=== PATIENT | female | born 1990 | race African-American/Black ===

== ENCOUNTER 2023-01-04 15:27 | Inpatient (IN) | payer OTHER ==
[2023-01-04 16:35] LABS: INR 0.97 (0.83-1.09); PROTHROMBIN TIME (PATIENT) 11.2 SEC (9.7-13.0)
[2023-01-04 16:38] LABS: ACTIVATED PTT 27.7 SECONDS (25.2-36.5)
[2023-01-04 16:40] LABS: BASO % 0.4 % (0-2.0); EOS % 0.7 % (0-4.5); HEMATOCRIT 32.1 % (32.4-45.2); HEMOGLOBIN 9.7 GM/dL (10.7-15.3); MCH 20.4 pg (25.7-33.7); MCHC 30.2 g/dl (32.0-36.0); MEAN CELL VOLUME 67.4 fl (80-96); MONO % 8.7 % (3.8-10.2); NEUT % 71.2 % (42.8-82.8); RBC 4.76 M/mm3 (3.60-5.2); RDW 17.6 % (11.6-15.6); WHITE BLOOD COUNT 6.6 K/mm3 (4.0-10.0)
[2023-01-04 17:01] LABS: POTASSIUM 3.9 mmol/L (3.5-5.1)
[2023-01-04 17:03] LABS: CALCIUM 8.8 mg/dL (8.5-10.1)
[2023-01-04 17:04] LABS: ALBUMIN 2.7 g/dl (3.4-5.0); BLOOD UREA NITROGEN 10.2 mg/dL (7-18)
[2023-01-04 17:07] LABS: CREATININE 0.7 mg/dL (0.55-1.3)
[2023-01-04 17:09] LABS: BILIRUBIN,TOTAL 0.3 mg/dL (0.2-1)
[2023-01-04 17:14] LABS: ANISOCYTOSIS 3+; MACROCYTOSIS 0; OVALOCYTE 1+; PLATELET COUNT 172 10^3/uL (134-434); TEAR DROP CELLS 1+
[2023-01-04 17:53] LABS: HIV INTERPRETATION NEGATIVE (NEGATIVE)
[2023-01-05] MEDS ORDERED: ELECTROLYTE-148 SOLN 500 ML IV ONE ×2 (05:00→09:49)
[2023-01-05] MEDS ORDERED: CITRIC ACID/SODIUM CITRATE 30 ML UNIT-DOSE CUP PO ONE ×2 (05:00→09:49)
[2023-01-05] MEDS ORDERED: ELECTROLYTE-148 SOLN 1,000 ML IV SCH (05:30)
[2023-01-05 06:01] VITALS: BMI 41.8
[2023-01-05] MEDS: ELECTROLYTE-148 SOLN 1,000 ML IV SCH (07:00)
[2023-01-05] MEDS ORDERED: OXYTOCIN 20 UNITS in 0.9% NS 40 UNIT/2,000 ML INFUS.BAG IV ONE (07:47)
[2023-01-05] MEDS ORDERED: DEXAMETHASONE SOD PHOSPHATE 4 MG/1 ML VIAL ONE (07:49)
[2023-01-05] MEDS ORDERED: ONDANSETRON 4 MG/2 ML VIAL ONE (07:49)
[2023-01-05] MEDS ORDERED: morphine SULFATE/PF 1 MG/2 ML (2cc Syringe - QUVA) ONE (07:49)
[2023-01-05] MEDS ORDERED: PHENYLEPHRINE HCL 10 MG/1 ML SINGLE DOSE VIAL ONE (07:49)
[2023-01-05] MEDS ORDERED: ceFAZolin SODIUM 1 GM VIAL ONE (07:49)
[2023-01-05] MEDS ORDERED: OXYTOCIN 10 UNITS/ML VIAL ONE (08:39)
[2023-01-05] MEDS: OXYTOCIN 20 UNITS in 0.9% NS 20 UNIT/1,000 ML INFUS.BAG IV SCH ×2 (08:46→17:49)
[2023-01-05] MEDS ORDERED: KETOROLAC TROMETHAMINE 30 MG/1 ML VIAL ONE (09:30)
[2023-01-05] MEDS ORDERED: ONDANSETRON 4 MG/2 ML VIAL IVPUSH PRN (09:56)
[2023-01-05] MEDS ORDERED: IBUPROFEN 800 MG/8 ML IJ IVPB PRN ×2 (09:57→09:58)
[2023-01-05] MEDS ORDERED: METHYLERGONOVINE MALEATE 0.2 MG/1 ML AMP IM PRN (09:58)
[2023-01-05] MEDS ORDERED: LABETALOL HCL 200 MG TABLET (FP) ONE (10:50)
[2023-01-05] MEDS: LABETALOL HCL 200 MG TABLET (FP) PO SCH ×2 (10:53→22:25)
[2023-01-05] MEDS: FERROUS SO4 325 MG TABLET (FP) PO SCH ×2 (12:18→22:25)
[2023-01-05] MEDS: PRENATAL VITAMINS W/ FOLIC ACID TABLET (FP) PO SCH (12:18)
[2023-01-05] MEDS ORDERED: MISOPROSTOL 200 MCG TABLET ONE ×2 (14:15→14:18)
[2023-01-05] MEDS ORDERED: MISOPROSTOL 200 MCG TABLET PR ONE (14:30)
[2023-01-05] MEDS: ACETAMINOPHEN 1000 MG/100 ML BAG IVPB PRN (16:18)
[2023-01-05 17:27] LABS: BASO % 0.1 % (0-2.0); LYMPH % 6.3 % (8-40); MCH 20.1 pg (25.7-33.7); MCHC 29.9 g/dl (32.0-36.0); MEAN CELL VOLUME 67.2 fl (80-96); MEAN PLT VOLUME 8.9 fl (7.5-11.1); MONO % 3.9 % (3.8-10.2); NEUT % 89.7 % (42.8-82.8); PLATELET COUNT 168 10^3/uL (134-434); RBC 4.47 M/mm3 (3.60-5.2); RDW 17.2 % (11.6-15.6); WHITE BLOOD COUNT 11.7 K/mm3 (4.0-10.0)
[2023-01-05] MEDS ORDERED: CEFAZOLIN SODIUM 2 GM in DEXTROSE 5%-WATER 100 ML IVPB ONE (18:15)
[2023-01-05] MEDS ORDERED: oxyCODONE HCL 5 MG TABLET PO PRN (21:58)
[2023-01-06] MEDS: ACETAMINOPHEN 1000 MG/100 ML BAG IVPB PRN (01:18)
[2023-01-06] MEDS: oxyCODONE HCL 5 MG TABLET PO PRN ×2 (08:27→20:43)
[2023-01-06] MEDS: SIMETHICONE 80 MG TAB.CHEW (FP) PO PRN ×2 (08:28→17:12)
[2023-01-06] MEDS: FERROUS SO4 325 MG TABLET (FP) PO SCH ×2 (09:28→21:59)
[2023-01-06] MEDS: PRENATAL VITAMINS W/ FOLIC ACID TABLET (FP) PO SCH (09:28)
[2023-01-06] MEDS: IBUPROFEN 600 MG TABLET (FP) PO PRN ×2 (09:29→17:12)
[2023-01-06] MEDS: LABETALOL HCL 200 MG TABLET (FP) PO SCH ×2 (09:29→21:59)
[2023-01-06 09:32] LABS: BASO % 0.2 % (0-2.0); HEMATOCRIT 21.8 % (32.4-45.2); LYMPH % 14.2 % (8-40); MCH 20.5 pg (25.7-33.7); MCHC 30.6 g/dl (32.0-36.0); MONO % 7.7 % (3.8-10.2); NEUT % 77.9 % (42.8-82.8); PLATELET COUNT 135 10^3/uL (134-434); RBC 3.26 M/mm3 (3.60-5.2); RDW 16.9 % (11.6-15.6); WHITE BLOOD COUNT 13.4 K/mm3 (4.0-10.0)
[2023-01-06 09:36] LABS: HEMOGLOBIN 6.7 GM/dL (10.7-15.3)
[2023-01-06] MEDS ORDERED: BISACODYL 10 MG SUPP.RECT RC PRN (09:58)
[2023-01-06] MEDS: OXYTOCIN 20 UNITS in 0.9% NS 20 UNIT/1,000 ML INFUS.BAG IV SCH (11:10)
[2023-01-06] MEDS: ELECTROLYTE-148 SOLN 1,000 ML IV SCH (11:12)
[2023-01-06] MEDS: ACETAMINOPHEN 325 MG TABLET (FP) PO PRN (11:14)
[2023-01-06] MEDS ORDERED: MAG HYDROX/AL HYDROX/SIMETH 30 ML UNIT-DOSE CUP PO PRN (18:08)
[2023-01-06] MEDS: SENNOSIDES/DOCUSATE COMBO (SENNA PLUS) TABLET (UD) PO PRN (22:00)
[2023-01-07] MEDS: SIMETHICONE 80 MG TAB.CHEW (FP) PO PRN ×3 (01:31→10:10)
[2023-01-07] MEDS: oxyCODONE HCL 5 MG TABLET PO PRN ×3 (01:32→21:01)
[2023-01-07] MEDS: LABETALOL HCL 200 MG TABLET (FP) PO SCH ×2 (10:07→21:02)
[2023-01-07] MEDS: FERROUS SO4 325 MG TABLET (FP) PO SCH ×2 (10:07→21:02)
[2023-01-07] MEDS: ACETAMINOPHEN 325 MG TABLET (FP) PO PRN (10:09)
[2023-01-07] MEDS: PRENATAL VITAMINS W/ FOLIC ACID TABLET (FP) PO SCH (10:17)
[2023-01-07] MEDS: IBUPROFEN 600 MG TABLET (FP) PO PRN (14:13)
[2023-01-08] MEDS: SENNOSIDES/DOCUSATE COMBO (SENNA PLUS) TABLET (UD) PO PRN (01:48)
[2023-01-08] MEDS: oxyCODONE HCL 5 MG TABLET PO PRN (01:48)
[2023-01-08] MEDS: SIMETHICONE 80 MG TAB.CHEW (FP) PO PRN (01:48)
[2023-01-08] MEDS: IBUPROFEN 600 MG TABLET (FP) PO PRN ×2 (03:24→13:15)
[2023-01-08] MEDS: FERROUS SO4 325 MG TABLET (FP) PO SCH (10:43)
[2023-01-08] MEDS: PRENATAL VITAMINS W/ FOLIC ACID TABLET (FP) PO SCH (10:43)
[2023-01-08] MEDS: LABETALOL HCL 200 MG TABLET (FP) PO SCH (10:43)
[2023-01-08 12:46] VITALS: BP 139/90; PULSE 85; RESP 17; TEMP 99
== END 2023-01-08 14:30 | disposition home or self-care (01) | DRG 540 ==
LOC: JPSTI 15:27 → JLDR 01-05 04:35 → J3W 01-05 11:15
PROVIDERS: ADMIT Obstetrics & Gynecology; ATTEND Obstetrics & Gynecology
PROC: 10D00Z1 Extraction of Products of Conception, Low, Open Approach (ICD-10-PCS; principal; 2023-01-05)
DX: O13.4 Gestational [pregnancy-induced] hypertension without significant proteinuria, complicating childbirth (principal); O14.04 Mild to moderate pre-eclampsia, complicating childbirth; O76 Abnormality in fetal heart rate and rhythm complicating labor and delivery; O69.1XX0 Labor and delivery complicated by cord around neck, with compression, not applicable or unspecified; Z3A.39 39 weeks gestation of pregnancy; Z37.0 Single live birth
CPT/HCPCS: 36415; 80053; 85025; 85610; 85730; 86780; 86850; 86900; 86901; 87389; 88307-TC; 94010